=== PATIENT | female | born 1985 | race Caucasian/White ===

== ENCOUNTER 2016-12-12 20:41 | Emergency (ER) | payer OTHER ==
[2016-12-12 20:41] VITALS: BMI 24.9
--- NOTE | 2016-12-12 21:43 | C.PDOC ---
History Of Present Illness 31 year old patient presents to the ED complaining of flu like symptoms for the past week. Patient reports her sore throat and fever have been persistent. Patient states she is 17 weeks . Patient denies vaginal bleeding, vaginal discharge, abdominal pain, nausea, vomiting, or diarrhea. Time Seen by Provider: 12/12/16 20:55 Chief Complaint (Nursing): Cough, Cold, Congestion History Per: Patient History/Exam Limitations: no limitations Onset/Duration Of Symptoms: Other (last week) Current Symptoms Are (Timing): Still Present Location Of Pain: Throat Sick Contacts (Context): None Associated Symptoms: Sore Throat, Cough Ear Symptoms: Bilateral: None Severity: Mild Pain Scale Rating Of: 3 Recent travel outside of the [place]: No Past Medical History Reviewed: Historical Data, Nursing Documentation, Vital Signs Vital Signs: Last Vital Signs Temp 98.5 F 12/12/16 22:00 Pulse 101 H 12/12/16 22:00 Resp 20 12/12/16 22:00 BP 122/74 12/12/16 22:00 Pulse Ox 98 12/12/16 22:00 Family History: States: Unknown Family Hx - Social History Hx Tobacco Use: No Hx Alcohol Use: No Hx Substance Use: No - Immunization History Hx Tetanus Toxoid Vaccination: No Hx Influenza Vaccination: No Hx Pneumococcal Vaccination: No Review Of Systems Except As Marked, All Systems Reviewed And Found Negative. Constitutional: Positive for: Fever ENT: Positive for: Throat Pain Respiratory: Positive for: Cough Gastrointestinal: Negative for: Nausea, Vomiting, Abdominal Pain, Diarrhea Genitourinary: Negative for: Vaginal Discharge, Vaginal Bleeding Musculoskeletal: Negative for: Back Pain Physical Exam - Physical Exam Appears: Non-toxic, No Acute Distress Skin: Warm, Dry Head: Atraumatic, Normacephalic Eye(s): bilateral: Normal Inspection, PERRL, EOMI Ear(s): Bilateral: Normal Nose: Normal Oral Mucosa: Moist Throat: Erythema (left side), No Exudate Neck: Normal ROM, Supple Lymphatic: Normal Exam, No Adenopathy Chest: Symmetrical Cardiovascular: Rhythm Regular Respiratory: Normal Breath Sounds, No Rales, No Rhonchi, No Wheezing Back: Normal Inspection, No CVA Tenderness Extremity: Normal ROM Neurological/Psych: Oriented x3, Normal Speech, Normal Cognition Gait: Steady ED Course And Treatment O2 Sat by Pulse Oximetry: 100 (RA) Pulse Ox Interpretation: Normal Medical Decision Making Medical Decision Making: Plan: * Tylenol * Influenza A B stat * Throat culture * Reassess and disposition Progress: On re-exam, the patient remains stable and physical exam is normal. Lungs remain CTA and heart is RRR. Abdomen is soft, non-tender and tolerating PO well. Follow up with the medical doctor within 1-2 days. return if worsened. Disposition - Disposition Referrals: [facility] [Outside] Disposition: HOME/ ROUTINE Disposition Time: 21:49 Condition: GOOD Additional Instructions: Follow up with the medical doctor within 1-2 days. Return if worsened. Prescriptions: Loratadine [Claritin] 10 mg PO DAILY #10 tab Acetaminophen [Tylenol] 325 mg PO Q6 PRN #30 tab PRN Reason: Fever >100.4 F Instructions: Upper Respiratory Infection (ED) - Clinical Impression Clinical Impression: Upper respiratory infection - PA / HAND I BLOCKER / Resident Statement MD/DO has reviewed & agrees with the documentation as recorded. - Scribe Statement The provider has reviewed the documentation as recorded by the Scribe Jessica Padilla All medical record entries made by the Scribe were at my direction and personally dictated by me. I have reviewed the chart and agree that the record accurately reflects my personal performance of the history, physical exam, medical decision making, and the department course for this patient. I have also personally directed, reviewed, and agree with the discharge instructions and disposition.
[2016-12-12 22:01] VITALS: BP 122/74; PULSE 101; RESP 20; TEMP 98.5
[2016-12-13 01:10] VITALS: O2SAT 100
== END 2016-12-12 22:00 | disposition home or self-care (01) ==
LOC: C.ER 20:41
DX: O99.512 Diseases of the respiratory system complicating pregnancy, second trimester (principal); J06.9 Acute upper respiratory infection, unspecified; Z3A.17 17 weeks gestation of pregnancy

== ENCOUNTER 2018-06-23 08:59 | Emergency (ER) | payer OTHER ==
[2018-06-23 08:59] VITALS: BMI 24.9
[2018-06-23] MEDS ORDERED: Sodium Chloride 0.9% 1,000 ML IV ONE (09:41)
[2018-06-23] MEDS ORDERED: Sodium Chloride 0.9% 1,000 ML ONE (10:22)
[2018-06-23 10:23] LABS: BASO # 0.1 K/uL (0.0-0.2); BASO % 0.8 % (0.0-2.0); EOS # 0.1 K/uL (0.0-0.7); EOS % 1.3 % (0.0-4.0); HEMOGLOBIN 14.3 g/dL (11.0-16.0); LYMPH # 2.3 K/uL (1.0-4.3); LYMPH % 34.2 % (20.0-40.0); MEAN CELL VOLUME 85.3 fL (81.0-99.0); MEAN CORPUSCULAR HEMOGLOBIN 29.2 pg (27.0-31.0); MEAN CORPUSCULAR HGB CONC 34.3 g/dL (33.0-37.0); MEAN PLATELET VOLUME 8.5 fL (7.2-11.7); MONO # 0.4 K/uL (0.0-0.8); MONO % 5.9 % (0.0-10.0); NEUT # 3.8 K/uL (1.8-7.0); NEUT % 57.8 % (50.0-75.0); NRBC % 0.1 % (0.0-2.0); RBC 4.88 Mil/uL (3.80-5.20); WHITE BLOOD COUNT 6.6 K/uL (4.8-10.8)
[2018-06-23 10:32] LABS: ALB/GLOB RATIO 1.5 (1.0-2.1); ALBUMIN 4.6 g/dL (3.5-5.0); ALT/SGPT 26 U/L (9-52); AST/SGOT 19 U/L (14-36); BLOOD UREA NITROGEN 11 mg/dL (7-17); CALCIUM 9.6 mg/dl (8.6-10.4); GFR NON-AFRICAN AMERICAN > 60; LIPASE 116 U/L (23-300)
--- NOTE | 2018-06-23 11:27 | C.PDOC ---
History Of Present Illness 33yo F PMH recurrent UTI c/o epigastric pain x2 weeks, worsened last night. Pt was seen by PMD 2 weeks ago, placed on cipro/flagyl for UTI, pantoprazole for GERD. Did not fill Rx until 1 week ago, taking Rx as prescribed for 8 days. 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 Localizes the pain to epigastric region radiating up midsternally, to the back. Described as an electrocuting or stabbing pain, at worst 10/10; currently 2/10. Assoc with generalized weakness, most in her L arm, difficulty in deep inspiration, constant nausea- vomiting x1 self induced, felt better. Recent travel [place] x45 days, May 12 return. PMH: recurrent UTI, gestational DM All: PCN - rash Rx: cipro, flagyl, pantoprazole OB: children are 5yo, 13mo - no longer , periods returned. <Colleen Stone - Last Filed: 06/23/18 16:49> History Per: Patient Abnormal Vaginal Bleeding: No <Colleen Stone - Last Filed: 06/23/18 16:49> <Randolph Brown DO - Last Filed: 06/23/18 18:24> Time Seen by Provider: 06/23/18 09:10 Chief Complaint (Nursing): Abdominal Pain Past Medical History Reviewed: Historical Data, Nursing Documentation, Vital Signs Vital Signs: Last Vital Signs Temp 98.8 F 06/23/18 09:05 Pulse 65 06/23/18 09:05 Resp 18 06/23/18 09:05 BP 114/77 06/23/18 09:05 Pulse Ox 98 06/23/18 09:05 Family History: States: Unknown Family Hx - Social History Hx Tobacco Use: No Hx Alcohol Use: No Hx Substance Use: No - Immunization History Hx Tetanus Toxoid Vaccination: No Hx Influenza Vaccination: No Hx Pneumococcal Vaccination: No <Colleen Stone - Last Filed: 06/23/18 16:49> Vital Signs: Last Vital Signs Temp 97.9 F 06/23/18 13:08 Pulse 69 06/23/18 13:08 Resp 16 06/23/18 13:08 BP 105/71 06/23/18 13:08 Pulse Ox 98 06/23/18 16:50 <Randolph Brown DO - Last Filed: 06/23/18 18:24> Review Of Systems Constitutional: Positive for: Weakness. Negative for: Fever, Chills Eyes: Negative for: Vision Change Cardiovascular: Positive for: Chest Pain, Orthopnea. Negative for: Palpitations, Edema, Light Headedness Respiratory: Positive for: SOB with Excertion. Negative for: Cough, Shortness of Breath, Pleuritic Pain, Wheezing Gastrointestinal: Positive for: Nausea, Abdominal Pain. Negative for: Vomiting, Diarrhea, Constipation, Melena, Hematochezia, Hematemesis Genitourinary: Positive for: Dysuria. Negative for: Incontinence, Hematuria, Vaginal Discharge, Vaginal Bleeding Neurological: Positive for: Weakness. Negative for: Headache <Colleen Stone - Last Filed: 06/23/18 16:49> Physical Exam - Physical Exam Appears: Well, No Acute Distress Skin: Normal Color, Dry Head: Atraumatic, Normacephalic Eye(s): bilateral: Normal Inspection, PERRL, EOMI Ear(s): Left: Normal, Right: TM Obscured By Wax Nose: Normal Oral Mucosa: Moist Neck: Normal, No Paracervical Tenderness Lymphatic: No Adenopathy Cardiovascular: Rhythm Regular, No Murmur Respiratory: Normal Breath Sounds, No Accessory Muscle Use Gastrointestinal/Abdominal: Soft, Tenderness (TTP epigastrium), No Distention, No Guarding, No Rebound Back: No CVA Tenderness Extremity: Normal ROM, Capillary Refill Pulses: Left Carotid: Normal, Right Carotid: Normal, Left Radial: Normal, Right Radial: Normal, Left Dorsalis Pedis: Normal, Right Dorsalis Pedis: Normal DTR: Bicep (R): 2+, Bicep (L): 2+, Knee (R): 2+, Knee (L): 2+ Neurological/Psych: Oriented x3, Normal Cranial Nerves, Normal Reflexes <Colleen Stone - Last Filed: 06/23/18 16:49> ED Course And Treatment - Laboratory Results Result Diagrams: 06/23/18 10:15 06/23/18 10:15 O2 Sat by Pulse Oximetry: 98 <Colleen Stone - Last Filed: 06/23/18 16:49> - Laboratory Results Result Diagrams: 06/23/18 10:15 06/23/18 10:15 <Arpitavincentpatel Randolph WAYNE - Last Filed: 06/23/18 18:24> Medical Decision Making Medical Decision Making: EKG NSR, BW WNL, abd US neg for acute processes. Agree with PMD: GERD. will provide with H2 julia for bridging until PPI starts providing relief. <Colleen Stone Corie - Last Filed: 06/23/18 16:49> Disposition - Disposition Disposition Time: 12:00 <Colleen Stone - Last Filed: 06/23/18 16:49> <Kevin Randolph WAYNE - Last Filed: 06/23/18 18:24> - Disposition Referrals: [facility] Zulma Myles, [Non-Staff] - Disposition: HOME/ ROUTINE Condition: IMPROVED Additional Instructions: JOCELIN GATES, thank you for letting us take care of you today. The emergency medical care you received today was directed at your acute symptoms. If you were prescribed any medication, please fill it and take as directed. It may take several days for your symptoms to resolve. Return to the Emergency Department if your symptoms worsen, do not improve, or if you have any other problems. Please contact your doctor or call one of the physicians/clinics you have been referred to that are listed on the Patient Visit Information form that is included in your discharge packet. Bring any paperwork you were given at discharge with you along with any medications you are taking to your follow up visit. Our treatment cannot replace ongoing medical care by a primary care provider outside of the emergency department. Thank you for allowing the [facility] team to be part of your care today. Continue taking the medication already prescribed to you. Follow up with your primary care doctor in 3-5 days for re-evaluation and further management. Prescriptions: Ranitidine HCl [Zantac] 150 mg PO BID #20 tablet Instructions: Gastritis (DC) Forms: [employer] (Finnish) - Clinical Impression Clinical Impression: Gastroesophageal reflux disease - PA / MASS SPECTROMETRY SPECIALIST / Resident Statement RAMIREZ has reviewed & agrees with the documentation as recorded. RAMIREZ has examined the patient and agrees with the treatment plan. <Cloleen Stone - Last Filed: 06/23/18 16:49> - PA / MASS SPECTROMETRY SPECIALIST / Resident Statement RAMIREZ has reviewed & agrees with the documentation as recorded. RAMIREZ has examined the patient and agrees with the treatment plan. <Randolph Brown DO - Last Filed: 06/23/18 18:24>
--- NOTE | 2018-06-23 13:02 | US ---
HISTORY: upper abd pain COMPARISON: None available. TECHNIQUE: Sonographic evaluation of the abdomen. FINDINGS: LIVER: Measures 17.1 cm in sagittal dimension. Echogenic liver may be seen in setting of hepatic parenchymal disease or fatty infiltration. Echogenic heterogeneous lesion measuring approximately 2.1 x 1.2 x 2.9 cm. The main portal vein appears patent with normal directional flow. No intrahepatic bile duct dilatation. GALLBLADDER: No gallstones. No gallbladder wall thickening. Negative sonographic Yuen's sign as assessed by the knockout man. COMMON BILE DUCT: Measures 3 mm. PANCREAS: Not well visualized. RIGHT KIDNEY: Measures 11.1 x 4.2 x 4.6 cm. No obstructing calculus or hydronephrosis identified. LEFT KIDNEY: Measures 10.3 x 5.1 x 4.9 cm. No obstructing calculus or hydronephrosis identified. SPLEEN: Measures approximately 11.5 cm. AORTA: Limited views appear unremarkable. IVC: Limited views appear unremarkable. OTHER FINDINGS: None. IMPRESSION: Right hepatic lobe echogenic heterogeneous lesion measures 2.1 x 1.2 x 2.9 cm, indeterminate. Suggest follow-up evaluation with dedicated cross-sectional imaging. Echogenic liver may be seen in setting of hepatic parenchymal disease or fatty infiltration.
[2018-06-23 13:10] VITALS: BP 105/71; PULSE 69; RESP 16; TEMP 97.9
[2018-06-23 13:45] VITALS: O2SAT 98
--- NOTE | 2018-06-25 14:59 | CARD ---
APPROVED REPORT Date of service: 06/23/2018 EKG Measurement Heart [id number] <Conclusion> Normal sinus rhythm Cannot rule out Anterior infarct, age undetermined Abnormal ECG
== END 2018-06-23 13:42 | disposition home or self-care (01) ==
LOC: C.ER 08:59
DX: K21.9 Gastro-esophageal reflux disease without esophagitis (principal)
CPT/HCPCS: 76700; 80053; 83690; 85025; 93005; 96361; 96374; 96375; 99285; J2405; J7030

== ENCOUNTER 2018-11-21 00:21 | Emergency (ER) | payer OTHER ==
[2018-11-21 00:21] VITALS: BMI 24.9
--- NOTE | 2018-11-21 00:54 | C.PDOC ---
History Of Present Illness 33 year old female presents to the ED c/o SOB, chest pain and nausea that woke her up from sleep. Patient is able to speak in complete sentences, reports she felt like she was unable to catch her breath. Patient denies fever, chills, headache, palpitations, weakness, numbness, vomit, diarrhea. Time Seen by Provider: 11/21/18 00:49 Chief Complaint (Nursing): Shortness Of Breath History Per: Patient History/Exam Limitations: no limitations Onset/Duration Of Symptoms: Hrs Current Symptoms Are (Timing): Still Present Initiating Event: Upper Respiratory Illness Exacerbating Factor(s): Other Associated Symptoms: Chest Pain Recent travel outside of the [place]: No Additional History Per: Patient Past Medical History Reviewed: Historical Data, Nursing Documentation, Vital Signs Vital Signs: Last Vital Signs Temp 97.7 F 11/21/18 00:35 Pulse 83 11/21/18 00:35 Resp 16 11/21/18 00:35 BP 108/75 11/21/18 00:35 Pulse Ox 95 11/21/18 00:35 - Medical History PMH: No Chronic Diseases Surgical History: No Surg Hx Family History: States: Unknown Family Hx - Social History Hx Tobacco Use: No Hx Alcohol Use: No Hx Substance Use: No - Immunization History Hx Tetanus Toxoid Vaccination: No Hx Influenza Vaccination: No Hx Pneumococcal Vaccination: No Review Of Systems Constitutional: Negative for: Fever, Chills Cardiovascular: Positive for: Chest Pain. Negative for: Palpitations Respiratory: Positive for: Shortness of Breath. Negative for: Cough, Sputum, Wheezing Gastrointestinal: Positive for: Nausea. Negative for: Vomiting, Abdominal Pain Skin: Negative for: Rash Neurological: Negative for: Weakness, Numbness, Headache, Dizziness Physical Exam - Physical Exam Appears: Non-toxic, No Acute Distress Skin: Warm, Dry Head: Normacephalic Eye(s): bilateral: Normal Inspection Neck: Supple Chest: Symmetrical Cardiovascular: Rhythm Regular Respiratory: No Rales, No Rhonchi, No Wheezing Gastrointestinal/Abdominal: Soft, No Tenderness, No Guarding, No Rebound Extremity: Capillary Refill (< 2 seconds) Extremity: Bilateral: Atraumatic, Normal Color And Temperature, Normal ROM, Ot her (mild paresthesia fingers) Pulses: Left Radial: Normal, Right Radial: Normal Neurological/Psych: Oriented x3, Normal Speech, Normal Cognition Gait: Steady ED Course And Treatment - Laboratory Results Result Diagrams: 11/21/18 01:35 11/21/18 01:35 ECG: Interpreted By Me, Viewed By Me ECG Rhythm: Sinus Rhythm (69), Nonspecific Changes O2 Sat by Pulse Oximetry: 95 (ON RA) Pulse Ox Interpretation: Normal - CT Scan/US CTA chest Other Rad Studies (CT/US): Read By Radiologist, Radiology Report Reviewed CT/US Interpretation: CTA OF THE CHEST WITH IV CONTRAST. CLINICAL HISTORY: Shortness of breath, elevated d-dimer. TECHNIQUE: Axial and reformatted sagittal and coronal images of the chest obtained after bolus IV contrast administration. FINDINGS: Normal enhancement of the main pulmonary artery and right and left pulmonary arteries. Normal enhancement of the bilateral peripheral pulmonary arteries. There is no demonstrated pulmonary embolism. Normal thoracic aorta and visualized great vessels. There is no demonstrated aortic dissection. Normal heart and pericardium. Normal mediastinum. Normal hilar regions. Normal visualized trachea and bronchi. The lungs are well expanded. Normal pulmonary parenchyma. Normal pleura. Normal chest wall structures. Normal osseous structures. Normal visualized upper abdomen. IMPRESSION: No demonstrated pulmonary embolism or arterial dissection. . Electronically signed on Nov 21, 2018 5:10:43 AM EDT by: Lucy Kemp M.D., Certified by ABR, MSK, Neuroradiology Progress Note: Plan: - VBG. - CTA chest. - LAbs. - EKG. - Protonox 40 mg IVP. - UA. pt has appt for upper gi , and esophagogram Medical Decision Making Medical Decision Making: Upon provider reevaluation patient is feeling better, is medically stable, and requires no further treatment in the ED at this time. Patient will be discharged home . Counseling was provided and all questions were answered regarding diagnosis and need for follow up with dr casey. There is agreement to discharge plan. Return if symptoms persist or worsen. Disposition Counseled Patient/Family Regarding: Studies Performed, Diagnosis, Need For Followup - Disposition Referrals: Melissa Casey MD [Medical Doctor] - Disposition: HOME/ ROUTINE Disposition Time: 00:51 Condition: FAIR Additional Instructions: Please return if symptoms recur Instructions: Acid Reflux (Gastroesophageal Reflux Disease), Adult (DC), Shortness of Breath (Dyspnea) (DC) Forms: [employer] (Bulgarian) - Clinical Impression Clinical Impression: GERD (gastroesophageal reflux disease), Dyspnea - Scribe Statement The provider has reviewed the documentation as recorded by the Scribe Mario Jackson All medical record entries made by the Scribe were at my direction and personally dictated by me. I have reviewed the chart and agree that the record accurately reflects my personal performance of the history, physical exam, medical decision making, and the department course for this patient. I have also personally directed, reviewed, and agree with the discharge instructions and di sposition.
[2018-11-21 01:42] LABS: VENOUS BLOOD GAS BASE EXCESS -2.2 mmol/L (0.0-2.0); VENOUS BLOOD GAS PCO2 41 mmHg (40-60); VENOUS BLOOD GAS PO2 44 mm/Hg (30-55); VENOUS BLOOD PH 7.36 (7.32-7.43)
[2018-11-21 01:43] LABS: BASO # 0.1 K/uL (0.0-0.2); BASO % 0.8 % (0.0-2.0); EOS # 0.2 K/uL (0.0-0.7); EOS % 2.2 % (0.0-4.0); HEMOGLOBIN 13.1 g/dL (11.0-16.0); INR 1.1; LYMPH # 2.1 K/uL (1.0-4.3); LYMPH % 26.8 % (20.0-40.0); MEAN CELL VOLUME 86.7 fL (81.0-99.0); MEAN CORPUSCULAR HEMOGLOBIN 28.4 pg (27.0-31.0); MEAN CORPUSCULAR HGB CONC 32.8 g/dL (33.0-37.0); MEAN PLATELET VOLUME 9.5 fL (7.2-11.7); MONO # 0.4 K/uL (0.0-0.8); NEUT # 5.2 K/uL (1.8-7.0); NEUT % 65.2 % (50.0-75.0); PROTHROMBIN TIME 12.2 SECONDS (9.7-12.2); RBC 4.59 Mil/uL (3.80-5.20); RED CELL DISTRIBUTION WIDTH 13.2 % (11.5-14.5); WHITE BLOOD COUNT 7.9 K/uL (4.8-10.8)
[2018-11-21 01:50] LABS: ALB/GLOB RATIO 1.6 (1.0-2.1); ALBUMIN 4.3 g/dL (3.5-5.0); ALT/SGPT 17 U/L (9-52); AST/SGOT 17 U/L (14-36); BLOOD UREA NITROGEN 17 mg/dL (7-17); CALCIUM 8.9 mg/dl (8.6-10.4); GFR NON-AFRICAN AMERICAN > 60
[2018-11-21 01:58] LABS: URINE BILIRUBIN NEGATIVE (NEGATIVE); URINE BLOOD NEGATIVE (NEGATIVE); URINE CLARITY Clear (Clear); URINE COLOR Colorless (YELLOW); URINE GLUCOSE (UA) NORMAL (Normal); URINE LEUKOCYTE ESTERASE NEG Leu/uL (Negative); URINE PROTEIN NEGATIVE (NEGATIVE); URINE UROBILINOGEN NORMAL mg/dL (0.2-1.0)
[2018-11-21] MEDS ORDERED: Iodixanol 320 MG/ML 100 ML BOTTLE IV ONE (01:58)
[2018-11-21 03:03] LABS: HCG,QUALITATIVE URINE NEGATIVE (NEGATIVE)
[2018-11-21 05:33] VITALS: BP 128/74; PULSE 82; RESP 20; TEMP 98; O2SAT 98
--- NOTE | 2018-11-21 14:19 | CT ---
Date of service: 11/21/2018 PROCEDURE: CT Chest with contrast (Pulmonary Angiogram) HISTORY: sob, elevated d dimer COMPARISON: None available. TECHNIQUE: Axial computed tomography images were obtained of the chest in the pulmonary arterial phase of enhancement. Coronal and sagittal reformatted images were created and reviewed. Intravenous contrast dose: 100 mL of Visipaque 320 intravenously. Radiation dose: Total exam DLP = 298.55 mGy-cm. This CT exam was performed using one or more of the following dose reduction techniques: Automated exposure control, adjustment of the mA and/or kV according to patient size, and/or use of iterative reconstruction technique. FINDINGS: PULMONARY ARTERIES: Unremarkable. No pulmonary embolism. AORTA: No acute findings. No thoracic aortic aneurysm. No aortic atherosclerotic calcification or mural plaque present. LUNGS: Unremarkable. No nodule, mass or pulmonary consolidation. PLEURAL SPACES: Unremarkable. No effusion or pneumothorax. HEART: Unremarkable. No cardiomegaly. No significant pericardial effusion. LYMPH NODES: No lymphadenopathy. BONES, CHEST WALL: Unremarkable. No fracture or destructive lesion OTHER FINDINGS: Mild diffuse esophageal mucosal thickening. IMPRESSION: No evidence of acute pulmonary embolus. No evidence of acute pulmonary disease. Preliminary report was submitted by [facility] contains concordant findings.
--- NOTE | 2018-11-22 12:38 | CARD ---
APPROVED REPORT Date of service: 11/21/2018 EKG Measurement Heart [id number] <Conclusion> Normal sinus rhythm Normal ECG
== END 2018-11-21 05:31 | disposition home or self-care (01) ==
LOC: C.ER 00:21
DX: K21.9 Gastro-esophageal reflux disease without esophagitis (principal); R06.00 Dyspnea, unspecified
CPT/HCPCS: 71275; 80053; 81001; 81025; 82803; 83880; 84443; 84484; 84703; 85025; 85378; 85610; 85730; 93005; 96374; 99285; C9113; Q9967